=== PATIENT | male | born 1940 | race Caucasian/White ===

== ENCOUNTER → 2018-04-01 | Emergency (ER) | payer OTHER ==
[~2018-04-01] VITALS: Ht 165.1 cm; Wt 68.0 kg
[~2018-04-01] MED LIST: ALTACE2.5 MG PO; LANTUS SOL100 UNIT/1 SUBCUTANEO
== END | disposition designated cancer center or children's hospital (05) ==
LOC: ER 13:08 → CPU-OBS 14:05 → ER 14:05
DX: I21.29 ST elevation (STEMI) myocardial infarction involving other sites (principal); I10 Essential (primary) hypertension; E11.65 Type 2 diabetes mellitus with hyperglycemia; R07.89 Other chest pain

== ENCOUNTER 2020-02-20 18:14 | Inpatient (IN) | payer OTHER ==
[~2020-02-20] VITALS: Ht 165.1 cm; Wt 54.4 kg
== END 2020-03-03 09:00 | disposition expired | DRG 871 ==
LOC: ER 18:14 → MEDI 02-21 09:49
PROVIDERS: ADMIT Internal Medicine; ATTEND Internal Medicine
PROC: 4A033R1 Measurement of Arterial Saturation, Peripheral, Percutaneous Approach (ICD-10-PCS; principal; 2020-02-21)
PROC: 3E0F7SF Introduction of Other Gas into Respiratory Tract, Via Natural or Artificial Opening (ICD-10-PCS; 2020-02-21)
PROC: BW21ZZZ Computerized Tomography (CT Scan) of Abdomen and Pelvis (ICD-10-PCS; 2020-02-21)
PROC: CB2YYZZ Tomographic (Tomo) Nuclear Medicine Imaging of Respiratory System using Other Radionuclide (ICD-10-PCS; 2020-02-21)
PROC: BW2GZZZ Computerized Tomography (CT Scan) of Pelvic Region (ICD-10-PCS; 2020-02-21)
PROC: 3E0F7GC Introduction of Other Therapeutic Substance into Respiratory Tract, Via Natural or Artificial Opening (ICD-10-PCS; 2020-02-22)
PROC: B24BZZZ Ultrasonography of Heart with Aorta (ICD-10-PCS; 2020-02-23)
PROC: 02HV33Z Insertion of Infusion Device into Superior Vena Cava, Percutaneous Approach (ICD-10-PCS; 2020-02-26)
PROC: 30233N1 Transfusion of Nonautologous Red Blood Cells into Peripheral Vein, Percutaneous Approach (ICD-10-PCS; 2020-03-01)
PROC: 5A09457 Assistance with Respiratory Ventilation, 24-96 Consecutive Hours, Continuous Positive Airway Pressure (ICD-10-PCS; 2020-03-01)
PROC: 4A12X4Z Monitoring of Cardiac Electrical Activity, External Approach (ICD-10-PCS; 2020-03-01)
DX: A41.59 Other Gram-negative sepsis (principal); J69.0 Pneumonitis due to inhalation of food and vomit; I21.3 ST elevation (STEMI) myocardial infarction of unspecified site; N17.8 Other acute kidney failure; I13.0 Hypertensive heart and chronic kidney disease with heart failure and stage 1 through stage 4 chronic kidney disease, or unspecified chronic kidney disease; E87.2 Acidosis; E87.0 Hyperosmolality and hypernatremia; E46 Unspecified protein-calorie malnutrition; K92.0 Hematemesis; Z68.1 Body mass index [BMI] 19.9 or less, adult; I50.9 Heart failure, unspecified; I25.10 Atherosclerotic heart disease of native coronary artery without angina pectoris; I11.0 Hypertensive heart disease with heart failure; L89.210 Pressure ulcer of right hip, unstageable; E11.65 Type 2 diabetes mellitus with hyperglycemia; R09.02 Hypoxemia; Z74.01 Bed confinement status; Z79.4 Long term (current) use of insulin; Z95.5 Presence of coronary angioplasty implant and graft; N18.9 Chronic kidney disease, unspecified; E86.0 Dehydration; Z66 Do not resuscitate; Z20.822 Contact with and (suspected) exposure to COVID-19